=== PATIENT | female | born 1960 | race American Indian/Alaskan Native ===

== ENCOUNTER 2017-09-13 11:41 | Emergency (ER) | payer MEDICAID, OTHER ==
[2017-09-13] MEDS ORDERED: Naloxone 0.4 mg/ml Inj (Adult) IVP ONE (13:20)
[2017-09-13] MEDS ORDERED: Naloxone 0.4 mg/ml Inj (Adult) ONE (13:25)
[2017-09-13 13:41] LABS: BASO # 0.2 K/uL (0.0-0.2); BASO % 1.4 % (0.0-2.0); EOS # 0.1 K/uL (0.0-0.7); EOS % 0.6 % (0.0-4.0); HEMOGLOBIN 11.7 g/dL (11.0-16.0); LYMPH # 2.1 K/uL (1.0-4.3); LYMPH % 17.5 % (20.0-40.0); MEAN CELL VOLUME 91.8 fL (81.0-99.0); MEAN CORPUSCULAR HEMOGLOBIN 29.8 pg (27.0-31.0); MEAN CORPUSCULAR HGB CONC 32.5 g/dL (33.0-37.0); MEAN PLATELET VOLUME 10.4 fL (7.2-11.7); MONO # 0.5 K/uL (0.0-0.8); MONO % 4.4 % (0.0-10.0); NEUT # 9.3 K/uL (1.8-7.0); NEUT % 76.1 % (50.0-75.0); RBC 3.93 Mil/uL (3.80-5.20); RED CELL DISTRIBUTION WIDTH 16.8 % (11.5-14.5); WHITE BLOOD COUNT 12.2 K/uL (4.8-10.8)
[2017-09-13 13:45] VITALS: RESP 16; TEMP 98
[2017-09-13 13:53] LABS: ALB/GLOB RATIO 0.9 (1.0-2.1); ALBUMIN 3.7 g/dL (3.5-5.0); CALCIUM 8.6 mg/dl (8.6-10.4); GFR AFRICAN-AMERICAN > 60; GFR NON-AFRICAN AMERICAN 57
[2017-09-13 13:54] LABS: ALT/SGPT 15 U/L (9-52); AST/SGOT 37 U/L (14-36); BLOOD UREA NITROGEN 26 mg/dL (7-17)
--- NOTE | 2017-09-13 14:06 | C.PDOC ---
History Of Present Illness [place] Pt appears to be intoxicated. Time Seen by Provider: 09/13/17 13:16 Chief Complaint (Nursing): Substance Abuse History Per: Patient, EMS History/Exam Limitations: intoxication Onset/Duration Of Symptoms: Other (Just MEDIA DIRECTOR) Current Symptoms Are (Timing): Still Present Modifying Factor(s): Narcotics Severity: Moderate Associated Symptoms: denies: Suicidal Thoughts, Suicidal Plan Additional History Per: Prior Records Past Medical History Reviewed: Historical Data, Nursing Documentation, Vital Signs Vital Signs: Last Vital Signs Temp 98 F 09/13/17 13:45 Pulse 79 09/13/17 13:45 Resp 16 09/13/17 13:45 BP 140/82 09/13/17 13:45 Pulse Ox 98 09/13/17 14:10 - Medical History PMH: Asthma, HTN Family History: States: Unknown Family Hx - Social History Hx Alcohol Use: No Hx Substance Use: Yes - Immunization History Hx Tetanus Toxoid Vaccination: (unk) Hx Influenza Vaccination: (unk) Hx Pneumococcal Vaccination: (unk) Review Of Systems Review Of Systems: ROS cannot be obtained secondary to pt's inabilty to answer questions. Physical Exam - Physical Exam Appears: No Acute Distress, Other (Drowsy, but arrousable to verbal stimuli) Skin: Normal Color, Warm, Dry, No Rash Head: Atraumatic, Normacephalic Eye(s): bilateral: PERRL (but small), EOMI Neck: Normal ROM, No Midline Cervical Tenderness, No Step Off Deformity, Supple Chest: Symmetrical Cardiovascular: Rhythm Regular Respiratory: Normal Breath Sounds, No Accessory Muscle Use Gastrointestinal/Abdominal: Soft, No Tenderness Extremity: Normal ROM Neurological/Psych: Slow To Respond With Command, Other (Moving all extremities) ED Course And Treatment - Laboratory Results Result Diagrams: 09/13/17 13:30 09/13/17 13:30 ECG: Interpreted By Me, Viewed By Me ECG Rhythm: Sinus Rhythm, Nonspecific Changes ECG Interpretation: No Acute Changes Rate From EC O2 Sat by Pulse Oximetry: 98 Pulse Ox Interpretation: Normal Progress Note: Pt is refusing to give a urine sample. Pt was given Narcan with good response. Pt was then observed for 4 hours in the ED and remains easily arrousable. Reassessment Condition: Improved Progress - Interventions Interventions:: Observation - Medications Administered Intravenous: Other (Narcan) - Data Reviewed Data Reviewed: Lab, EKG, Old records - Patient Status Patient status: Mostly improved - Continuity of Care Discussed patient case with:: Patient, ED Nurse - Patient Plan Patient Plan: Discharge, F/U with PCP, Continue present meds Disposition Counseled Patient/Family Regarding: Studies Performed, Diagnosis, Need For Followup - Disposition Disposition: HOME/ ROUTINE Disposition Time: 16:00 Condition: IMPROVED Additional Instructions: Avoid illicit drugs. Follow up with your doctor. Return to the ER if you develop worsening of symptoms or if you have any other concerns. Instructions: Drug Abuse and Drug Addiction (DC) Forms: [facility] (German), General Discharge Instructions - Clinical Impression Clinical Impression: Opioid abuse
[2017-09-13 16:26] VITALS: BP 126/86; PULSE 89; O2SAT 96
--- NOTE | 2017-09-14 12:12 | CARD ---
APPROVED REPORT EKG Measurement Heart [id number] <Conclusion> Normal sinus rhythm Minimal voltage criteria for LVH, may be normal variant Borderline ECG
== END 2017-09-13 16:26 | disposition home or self-care (01) ==
LOC: C.ER 11:41
DX: F11.10 Opioid abuse, uncomplicated (principal); I10 Essential (primary) hypertension
CPT/HCPCS: 80053; 80320; 85025; 93005; 96374; 99285; J2310

== ENCOUNTER 2017-10-10 10:42 | Emergency (ER) | payer MEDICAID ==
--- NOTE | 2017-10-10 13:20 | C.PDOC ---
History Of Present Illness 57 year old female presents to the ED complaining of right leg pain which began 2 weeks ago. Patient states the pain involves her right gluteal and right knee regions. Upon initial evaluation, patient is found sleeping. Upon waking, patient began complaining of pain and requesting Oxycontin. Patient denies any trauma/injuries. Time Seen by Provider: 10/10/17 11:24 Chief Complaint (Nursing): Lower Extremity Problem/Injury History Per: Patient History/Exam Limitations: no limitations Onset/Duration Of Symptoms: Other (2 weeks ) Current Symptoms Are (Timing): Still Present Additional History Per: Patient - Knee Description Of Injury: denies: Fell, Struck With Object, Struck Against Object Past Medical History Reviewed: Historical Data, Nursing Documentation, Vital Signs Vital Signs: Last Vital Signs Temp 98.8 F 10/10/17 17:07 Pulse 78 10/10/17 17:07 Resp 16 10/10/17 17:07 BP 150/74 10/10/17 17:07 Pulse Ox 96 10/10/17 17:07 - Medical History PMH: Asthma, HTN Surgical History: No Surg Hx Family History: States: Unknown Family Hx - Social History Hx Alcohol Use: No Hx Substance Use: Yes (denies) - Immunization History Hx Tetanus Toxoid Vaccination: (unk) Hx Influenza Vaccination: (unk) Hx Pneumococcal Vaccination: (unk) Review Of Systems Musculoskeletal: Positive for: Other (knee and gluteal pain ) Physical Exam - Physical Exam Appears: Non-toxic, No Acute Distress Skin: Normal Color, Warm, Dry Head: Atraumatic, Normacephalic Eye(s): bilateral: Normal Inspection Oral Mucosa: Moist Neck: Supple Chest: Symmetrical, No Deformity, No Tenderness Cardiovascular: Rhythm Regular, No Murmur Respiratory: Normal Breath Sounds, No Rales, No Rhonchi, No Wheezing Extremity: Tenderness (to right gluteal region and right posterior knee ), Capillary Refill (less than 2 seconds ), No Other (calf swelling, cellulitic component ) Pulses: Left Dorsalis Pedis: Normal, Right Dorsalis Pedis: Normal Neurological/Psych: Oriented x3, Normal Speech, Normal Cognition, Normal Sensation ED Course And Treatment O2 Sat by Pulse Oximetry: 97 (on RA) Pulse Ox Interpretation: Normal - Other Rad right knee XR X-Ray: Interpreted by Me, Viewed By Me, Read By Radiologist Interpretation: PROCEDURE: Right Knee Radiographs. HISTORY: knee pain. COMPARISON: None. FINDINGS: BONES: Bone alignment and mineralization are normal. There is no acute displaced fracture or bone destruction. JOINTS: There is severe tricompartmental degenerative osteoarthrosis with reduced joint spaces, large marginal osteophytes and tibial spiking, worse in the medial compartment. JOINT EFFUSION: None. OTHER FINDINGS: None. IMPRESSION: Severe tricompartmental degenerative osteoarthrosis, worse in the medial compartment. lumbar spine XR X-Ray: Interpreted by Me, Viewed By Me, Read By Radiologist Interpretation: PROCEDURE: Radiographs of the Lumbar Spine. HISTORY: Pain. COMPARISON: No prior. FINDINGS: BONES: There is 5 mm degenerative anterior listhesis of L4 on L5. There is no acute fracture or spondylolysis. Bone mineralization is normal. DISC SPACES: There is mild multilevel degenerative disc disease with anterior spurring, mild reduced disc heights and multilevel facet arthropathy, worse at L4-5. OTHER FINDINGS: None. IMPRESSION: No acute fracture. Mild multilevel degenerative disc disease, worse at L4-5 with 5 mm degenerative anterior listhesis of. L4 on L5. Medical Decision Making Medical Decision Making: Assessment: sciatica Plan: * Bloodwork * Urinalysis * LS Spine AP/LAT * Right Knee XR * Venous Duplex Scan RLE * Toradol IM * reassess and disposition Progress: Bloodwork, urinalysis, LS Spine AP/Lat XR, Venous Duplex Scan Right Lower Extremity, Right knee XR ordered. Patient given Toradol IM. Venous Duplex Scan of RLE is unremarkable. XR results are as documented. Patient refused to supply urine sample On reassessment, patient is resting comfortably and is showing no signs of distress. Patient reports an improvement in her symptoms and is ambulatory in the ED without distress. Patient is stable for discharge with diagnosis of sciatica and is advised to f/u with PMD/clinic within 1-2 days for further evaluation and/or return to the ED if symptoms persist or worsen. Disposition Counseled Patient/Family Regarding: Studies Performed, Diagnosis, Need For Followup, Rx Given - Disposition Referrals: [facility] [Outside] Disposition: HOME/ ROUTINE Disposition Time: 15:40 Condition: STABLE Additional Instructions: follow up with medical clinic in 2 days call to make an appointment take medications as prescribed return to ER if symptoms worsens or progress Prescriptions: Lidocaine 5% [Lidoderm] 1 ea TD DAILY PRN #15 patch PRN Reason: Pain, Moderate (4-7) Naproxen [Naprosyn] 500 mg PO BID PRN #16 tab PRN Reason: Pain, Moderate (4-7) Instructions: Sciatica Forms: [facility] (Tuvaluan), General Discharge Instructions - Clinical Impression Clinical Impression: Sciatica - Scribe Statement The provider has reviewed the documentation as recorded by the Scribe (Ileana Case) Provider Attestation: All medical record entries made by the Scribe were at my direction and personally dictated by me. I have reviewed the chart and agree that the record accurately reflects my personal performance of the history, physical exam, medical decision making, and the department course for this patient. I have also personally directed, reviewed, and agree with the discharge instructions and disposition.
--- NOTE | 2017-10-10 13:40 | RAD ---
PROCEDURE: Radiographs of the Lumbar Spine. HISTORY: Pain COMPARISON: No prior. FINDINGS: BONES: There is 5 mm degenerative anterior listhesis of L4 on L5. There is no acute fracture or spondylolysis. Bone mineralization is normal. DISC SPACES: There is mild multilevel degenerative disc disease with anterior spurring, mild reduced disc heights and multilevel facet arthropathy, worse at L4-5. OTHER FINDINGS: None. IMPRESSION: No acute fracture. Mild multilevel degenerative disc disease, worse at L4-5 with 5 mm degenerative anterior listhesis of L4 on L5.
--- NOTE | 2017-10-10 13:41 | RAD ---
PROCEDURE: Right Knee Radiographs. HISTORY: knee pain COMPARISON: None. FINDINGS: BONES: Bone alignment and mineralization are normal. There is no acute displaced fracture or bone destruction. JOINTS: There is severe tricompartmental degenerative osteoarthrosis with reduced joint spaces, large marginal osteophytes and tibial spiking, worse in the medial compartment. JOINT EFFUSION: None. OTHER FINDINGS: None. IMPRESSION: Severe tricompartmental degenerative osteoarthrosis, worse in the medial compartment.
--- NOTE | 2017-10-10 15:51 | VASCLAB ---
PROCEDURE: Right Lower Extremity Venous Duplex Exam. HISTORY: knee pain PRIORS: None. TECHNIQUE: Right common femoral, femoral, popliteal and posterior tibial, peroneal and great saphenous veins were evaluated. Flow was assessed with color Doppler, compressibility, assessment of phasic flow and augmentation response. Report prepared by RONI Vernon, RVT FINDINGS: RIGHT: 1. Common Femoral Vein: 1.1. Compressibility - Fully compressible: Thrombus - None: Flow - Phasic: Augmentation -Normal: Reflux - None. 2. Femoral Vein: 2.1. Compressibility - Fully compressible: Thrombus - None: Flow - Phasic: Augmentation -Normal: Reflux - None. 3. Popliteal Vein: 3.1. Compressibility - Fully compressible: Thrombus - None: Flow - Phasic: Augmentation -Normal: Reflux - None. 4. Posterior Tibial Vein: 4.1. Compressibility - Fully compressible: Thrombus - None: Flow - Phasic: Augmentation -Normal: Reflux - None. 5. Peroneal Vein: 5.1. Compressibility - Fully compressible: Thrombus - None: Flow - Phasic: Augmentation -Normal: Reflux - None. 6. Great Saphenous Vein: 6.1. Compressibility - Fully compressible: Thrombus -None: Flow - Phasic: Augmentation - Normal: Reflux - None. OTHER FINDINGS: IMPRESSION: No evidence of deep or superficial vein thrombosis of the right lower extremity with excellent venous flow. Normal valve function noted of the right side. Normal venous flow noted in the left common femoral vein.
[2017-10-10 17:28] VITALS: RESP 16
[2017-10-10 20:02] LABS: SQUAMOUS EPITHIAL 1 /hpf (0-5); URINE BACTERIA FEW (<OCC); URINE BILIRUBIN NEGATIVE (NEGATIVE); URINE BLOOD 1+ (NEGATIVE); URINE CLARITY Clear (Clear); URINE COLOR Yellow (YELLOW); URINE GLUCOSE (UA) NORMAL (Normal); URINE PROTEIN 2+ mg/dL (NEGATIVE); URINE UROBILINOGEN NORMAL mg/dL (0.2-1.0)
[2017-10-10 20:04] LABS: URINE LEUKOCYTE ESTERASE 1+ Leu/uL (Negative)
[2017-10-10 20:12] LABS: BARBITURATES, UR NEGATIVE (NEGATIVE); PHENCYCLIDINE, UR NEGATIVE (NEGATIVE)
[2017-10-10 20:13] LABS: BENZODIAZEPINES, UR POSITIVE (NEGATIVE); OPIATES, UR POSITIVE (NEGATIVE)
[2017-10-10] MEDS ORDERED: Naproxen 550 mg Tab PO ONE (21:36)
[2017-10-10] MEDS ORDERED: Lidocaine 5% Patch TD ONE (21:36)
[2017-10-10] MEDS ORDERED: Lidocaine 5% Patch TD STA (21:48)
[2017-10-10] MEDS ORDERED: Naproxen 550 mg Tab PO STA (21:48)
[2017-10-10 22:07] VITALS: BP 160/93; PULSE 96; TEMP 98.2; O2SAT 96
== END 2017-10-10 22:30 | disposition home or self-care (01) ==
LOC: C.ER 10:42
DX: M54.31 Sciatica, right side (principal)

== ENCOUNTER 2017-11-16 10:49 | Emergency (ER) | payer MEDICAID ==
[2017-11-16 11:11] VITALS: BP 152/96; PULSE 88; RESP 16; TEMP 98.3; O2SAT 96
--- NOTE | 2017-11-16 11:20 | C.PDOC ---
History Of Present Illness 57 year old female is brought into the emergency department via ambulance. Patient states that she believes somebody is switching out her Albuterol for mace, and that somebody is putting something in her shoes. Patient denies any recent drug use. When approached by me, the patient states asked someone to call the ambulance for her because she only wants a new Albuterol pump, a new prescription for Norvasc and a sandwich. Time Seen by Provider: 11/16/17 11:19 Chief Complaint (Nursing): Psychiatric Evaluation History Per: Patient History/Exam Limitations: no limitations Onset/Duration Of Symptoms: Days Current Symptoms Are (Timing): Still Present Modifying Factor(s): None Past Medical History Reviewed: Historical Data, Nursing Documentation, Vital Signs Vital Signs: Last Vital Signs Temp 98.3 F 11/16/17 11:08 Pulse 88 11/16/17 11:08 Resp 16 11/16/17 11:08 BP 152/96 H 11/16/17 11:08 Pulse Ox 96 11/16/17 13:50 - Medical History PMH: Asthma, HTN Surgical History: No Surg Hx Family History: States: No Known Family Hx - Social History Hx Alcohol Use: No Hx Substance Use: Yes (denies) - Immunization History Hx Tetanus Toxoid Vaccination: (unk) Hx Influenza Vaccination: (unk) Hx Pneumococcal Vaccination: (unk) Review Of Systems Except As Marked, All Systems Reviewed And Found Negative. Constitutional: Negative for: Fever, Chills Gastrointestinal: Negative for: Nausea, Vomiting, Abdominal Pain Physical Exam - Physical Exam Appears: Non-toxic, No Acute Distress Skin: Normal Color, Warm Head: Atraumatic, Normacephalic Eye(s): bilateral: Normal Inspection Neck: Normal ROM Cardiovascular: Rhythm Regular, No Edema Respiratory: Wheezing (mild bilateral wheeze) Gastrointestinal/Abdominal: Normal Exam, Soft, No Tenderness Neurological/Psych: Oriented x3, Normal Speech, Normal Cognition ED Course And Treatment O2 Sat by Pulse Oximetry: 96 (RA) Pulse Ox Interpretation: Normal Progress Note: Plan: EKG. CXR. Labs. Crisis evaluation. Albuterol neb. A nebulizer treatment with Duoneb and Albuterol ordered. The patient refused to talk to crisis and refused to any blood work, urine tests or CXR, staing that she only wants Albuterol, a prescription for Norvasc, and a sandwich. When RN came to the room to start neb treatment he found out that patient eloped from ED. Disposition - Disposition Disposition: ELOPEMENT - ER ONLY Disposition Time: 12:34 Condition: UNKNOWN Forms: [facility] (Bolivian) - Clinical Impression Clinical Impression: Paranoid delusion, Wheezing - PA / DIRECTOR VIDEO / Resident Statement MD/DO has reviewed & agrees with the documentation as recorded. - Scribe Statement The provider has reviewed the documentation as recorded by the Scribe (Jeffery Morgan) All medical record entries made by the Scribe were at my direction and personally dictated by me. I have reviewed the chart and agree that the record accurately reflects my personal performance of the history, physical exam, medical decision making, and the department course for this patient. I have also personally directed, reviewed, and agree with the discharge instructions and disposition.
--- NOTE | 2017-11-16 11:48 | RAD ---
PROCEDURE: CHEST RADIOGRAPH, 1 VIEW HISTORY: Detox/Psy COMPARISON: None available. FINDINGS: LUNGS: No infiltrate. No pulmonary mass. PLEURA: No pneumothorax or pleural fluid seen. CARDIOVASCULAR: Normal. OSSEOUS STRUCTURES: No significant abnormalities. VISUALIZED UPPER ABDOMEN: Normal. OTHER FINDINGS: None. IMPRESSION: No active disease.
[2017-11-16] MEDS ORDERED: Ipratropium 0.02% Inhal Soln (0.5 mg/2.5 ml) UD IH STA (11:49)
[2017-11-16] MEDS ORDERED: Albuterol-Ipratrop 3 mg / 0.5 (3 ml) UD IH STA (11:49)
== END 2017-11-16 12:35 | disposition left against medical advice (07) ==
LOC: C.ER 10:49
DX: F22 Delusional disorders (principal); J45.909 Unspecified asthma, uncomplicated; F17.210 Nicotine dependence, cigarettes, uncomplicated